=== PATIENT | male | born 1990 | race American Indian/Alaskan Native ===

== ENCOUNTER 2016-11-20 21:55 | Emergency (ER) | payer BC ==
[2016-11-20 22:38] VITALS: BP 133/87
[2016-11-20 23:00] LABS: Basophils % (Auto) 1.2 % (0.0-1.8); Hematocrit 43.9 % (35.5-45.6); Hemoglobin 14.3 gm/dl (11.8-15.2); Mean Corpuscular HGB Conc 33 % (32-34); Mean Corpuscular Hemoglobin 27 pg (28-32); Mean Corpuscular Volume 82 fl (84-94); Platelet Count 268 K/mm3 (140-440); Red Blood Count 5.36 M/mm3 (3.65-5.03); Red Cell Distribution Width 16.1 % (13.2-15.2); White Blood Count 6.5 K/mm3 (4.5-11.0)
[2016-11-20 23:25] LABS: Anion Gap 17 mmol/L; Blood Urea Nitrogen 12 mg/dL (9-20); Calcium 9.3 mg/dL (8.4-10.2); Carbon Dioxide 25 mmol/L (22-30); Glucose 87 mg/dL (75-100); Sodium 144 mmol/L (137-145)
--- NOTE | 2016-11-22 14:33 | ED Elopement Review ---
ED Pt Elopement review - Results review Lab results: Laboratory Tests 11/20/16 11/20/16 22:41 22:41 WBC 6.5 RBC 5.36 H Hgb 14.3 Hct 43.9 MCV 82 L MCH 27 L MCHC 33 RDW 16.1 H Plt Count 268 Lymph % (Auto) 20.6 Blaine % (Auto) 6.6 Eos % (Auto) 3.0 Baso % (Auto) 1.2 Lymph # 1.3 Blaine # 0.4 Eos # 0.2 Baso # 0.1 Seg Neutrophils % 68.6 Seg Neutrophils # 4.4 Sodium 144 Potassium 4.0 Chloride 106.0 Carbon Dioxide 25 Anion Gap 17 BUN 12 Creatinine 1.0 Estimated GFR > 60 BUN/Creatinine Ratio 12.00 Glucose 87 Calcium 9.3 C-Reactive Protein 0.00 - Call Back decision Pt Call Back Decision: Pt to F/U with PMD
== END 2016-11-21 02:51 | disposition left against medical advice (07) ==
LOC: ED 21:55
DX: R42 Dizziness and giddiness (principal); R11.0 Nausea; Z53.21 Procedure and treatment not carried out due to patient leaving prior to being seen by health care provider
CPT/HCPCS: 36415; 80048; 85025; 86140

== ENCOUNTER 2017-05-15 19:06 | Emergency (ER) | payer BC ==
[2017-05-15 20:17] VITALS: BP 124/82
[2017-05-16] MEDS ORDERED: MOTRIN PO ONE
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
== END 2017-05-16 01:05 | disposition home or self-care (01) ==
LOC: ED 19:06
DX: S13.4XXA Sprain of ligaments of cervical spine, initial encounter (principal); F17.200 Nicotine dependence, unspecified, uncomplicated; F12.10 Cannabis abuse, uncomplicated; V47.6XXA Car passenger injured in collision with fixed or stationary object in traffic accident, initial encounter; Y93.89 Activity, other specified; Y92.89 Other specified places as the place of occurrence of the external cause; Y99.8 Other external cause status
CPT/HCPCS: 99282

== ENCOUNTER 2019-07-12 01:09 | Emergency (ER) | payer BC ==
[2019-07-12 01:27] VITALS: BP 142/86
--- NOTE | 2019-07-12 02:42 | XRay Report ---
CHEST 1 VIEW INDICATION: Chest Pain. COMPARISON: none FINDINGS: SUPPORT DEVICES: None. HEART / MEDIASTINUM: No significant abnormality. LUNGS / PLEURA: No significant pulmonary or pleural abnormality. No pneumothorax. ADDITIONAL FINDINGS: IMPRESSION: 1. No acute cardiopulmonary disease Signer Name: Dinesh Le MD Signed: 07/12/2019 2:38 AM Workstation Name: [email or web address]
--- NOTE | 2019-07-12 08:02 | Emergency Department Report ---
ED General Adult HPI - General Chief complaint: Chest Pain Stated complaint: CHEST PAIN, SORE THROAT Time Seen by Provider: 07/12/19 07:13 Source: patient Mode of arrival: Ambulatory Limitations: No Limitations - History of Present Illness Initial comments: This is a 29-year-old -[place] male who presents to the emergency room with substernal chest discomfort for 2 days. Past medical history of migraines. Patient also reports sore throat and congestion associated symptoms. Patient states his son was diagnosed with strep throat last week and he think he possibly caught it from him. He is currently not taking anything for symptomatic relief. He denies cough, chills, nausea, vomiting, headache, myalgia, or weakness. Onset/Timin -: days(s) Location: chest Radiation: non-radiation Severity scale (0 -10): 6 Quality: aching Consistency: intermittent Improves with: none Worsens with: none Associated Symptoms: chest pain. denies: cough, diaphoresis, fever/chills, headaches, loss of appetite, malaise, nausea/vomiting, rash, seizure, shortness of breath, syncope, weakness Treatments Prior to Arrival: none - Related Data Previous Rx's Medication Instructions Recorded Last Taken Type Ondansetron [Zofran Odt] 4 mg PO Q6H #10 tab.rapdis 04/29/14 Unknown Rx traMADoL [Ultram 50 MG tab] 50 mg PO Q6HR PRN #14 tablet 04/29/14 Unknown Rx Famotidine [Pepcid] 20 mg PO BID #20 tablet 06/16/15 Unknown Rx Ondansetron [Zofran Odt] 4 mg PO Q8H PRN #10 tab.rapdis 01/02/16 Unknown Rx Cyclobenzaprine [Flexeril] 10 mg PO QHS PRN #7 tablet 05/16/17 Unknown Rx Ibuprofen [Motrin] 600 mg PO Q8H PRN #30 tablet 05/16/17 Unknown Rx Nystas/Diphen/Xyl Visc/Mylanta 15 ml MM Q4H PRN #100 ml 07/12/19 Unknown Rx [Magic Mouthwash] Penicillin V Potassium 500 mg PO BID #20 tablet 07/12/19 Unknown Rx Allergies Allergy/AdvReac Type Severity Reaction Status Date / Time No Known Allergies Allergy Verified 04/29/14 02:04 ED Review of Systems ROS: Stated complaint: CHEST PAIN, SORE THROAT Other details as noted in HPI Constitutional: denies: chills, fever ENT: throat pain, congestion. denies: ear pain, dental pain, hearing loss, epistaxis Respiratory: denies: cough, shortness of breath, wheezing Cardiovascular: chest pain. denies: palpitations Gastrointestinal: denies: abdominal pain, nausea, diarrhea Musculoskeletal: denies: back pain, joint swelling, arthralgia Skin: denies: rash, lesions Neurological: denies: headache, weakness, paresthesias Psychiatric: denies: anxiety, depression ED Past Medical Hx - Past Medical History Previous Medical History?: Yes Hx Headaches / Migraines: Yes Additional medical history: Migraines - Surgical History Past Surgical History?: No - Social History Smoking Status: Current Every Day Smoker Substance Use Type: Marijuana - Medications Home Medications: Home Medications Medication Instructions Recorded Confirmed Last Taken Type Ondansetron [Zofran Odt] 4 mg PO Q6H #10 tab.rapdis 04/29/14 Unknown Rx traMADoL [Ultram 50 MG tab] 50 mg PO Q6HR PRN #14 tablet 04/29/14 Unknown Rx Famotidine [Pepcid] 20 mg PO BID #20 tablet 06/16/15 Unknown Rx Ondansetron [Zofran Odt] 4 mg PO Q8H PRN #10 tab.rapdis 01/02/16 Unknown Rx Cyclobenzaprine [Flexeril] 10 mg PO QHS PRN #7 tablet 05/16/17 Unknown Rx Ibuprofen [Motrin] 600 mg PO Q8H PRN #30 tablet 05/16/17 Unknown Rx Nystas/Diphen/Xyl Visc/Mylanta 15 ml MM Q4H PRN #100 ml 07/12/19 Unknown Rx [Magic Mouthwash] Penicillin V Potassium 500 mg PO BID #20 tablet 07/12/19 Unknown Rx ED Physical Exam - General Limitations: No Limitations General appearance: alert, in no apparent distress - ENT ENT exam: Present: mucous membranes moist, TM's normal bilaterally, normal external ear exam. Absent: normal orophraynx (Erythematous and enlarged tonsils without exudate, uvula midline) - Neck Neck exam: Present: normal inspection - Respiratory Respiratory exam: Present: normal lung sounds bilaterally. Absent: respiratory distress, wheezes, rales, rhonchi, stridor, chest wall tenderness - Cardiovascular Cardiovascular Exam: Present: regular rate, normal rhythm. Absent: systolic murmur, diastolic murmur, rubs, gallop - GI/Abdominal GI/Abdominal exam: Present: soft, normal bowel sounds. Absent: distended, tenderness, guarding, rebound, rigid - Extremities Exam Extremities exam: Present: normal inspection - Neurological Exam Neurological exam: Present: alert, oriented X3, normal gait - Psychiatric Psychiatric exam: Present: normal affect, normal mood - Skin Skin exam: Present: warm, dry, intact, normal color. Absent: rash ED Course Vital Signs 07/12/19 01:26 Temperature 97.9 F Pulse Rate 54 L Respiratory 18 Rate Blood Pressure 142/86 O2 Sat by Pulse 100 Oximetry ED Medical Decision Making - Radiology Data Radiology results: report reviewed CHEST 1 VIEW INDICATION: Chest Pain. COMPARISON: none FINDINGS: SUPPORT DEVICES: None. HEART / MEDIASTINUM: No significant abnormality. LUNGS / PLEURA: No significant pulmonary or pleural abnormality. No pneumothorax. ADDITIONAL FINDINGS: IMPRESSION: 1. No acute cardiopulmonary disease - Medical Decision Making This is a 29 y.o. male that presents with sore throat, congestion, and chest pain for 2 days. Vitals are stable and patient in no acute distress. A chest x-ray was obtained with no acute cardiopulmonary findings. Center positive for strep throat. Start penicillin and Magic mouthwash. Take Tylenol or ibuprofen for pain. Discussed plan with patient and he agreed with plan to treat outpatient. Discharged home stable with strict return instructions. Return to work tomorrow. Follow up with PCP in 48-72 hours. Critical care attestation.: If time is entered above; I have spent that time in minutes in the direct care of this critically ill patient, excluding procedure time. ED Disposition Clinical Impression: Acute sore throat Chest pain Qualifiers: Chest pain type: other chest pain Qualified Code(s): R07.89 - Other chest pain; R07.8 - Other chest pain Acute pharyngitis Qualifiers: Pharyngitis/tonsillitis etiology: unspecified etiology Qualified Code(s): J02.9 - Acute pharyngitis, unspecified Disposition: TO HOME OR SELFCARE Is pt being admited?: No Condition: Stable Instructions: Chest Pain (ED), Pharyngitis (ED) Additional Instructions: Expect symptoms to improve within 3 or 4 days. There is no need for bed rest or isolation. Use Tylenol or Ibuprofen for symptoms of sore throat, headache, and fever. Return to work in 24 hours of taking antibiotics. Follow up with Primary Care Provider in 48-72 hours. Prescriptions: Nystas/Diphen/Xyl Visc/Mylanta [Magic Mouthwash] 15 ml MM Q4H PRN #100 ml PRN Reason: Sore Throat Penicillin V Potassium 500 mg PO BID #20 tablet Referrals: TERRANCE CARRASQUILLO DO [Staff Physician] - 3-5 Days [facility] [Provider Group] - 3-5 Days [facility] [Provider Group] - 3-5 Days LYDIA BURROWS MD [Staff Physician] - 3-5 Days Forms: Work/School Release Form(ED) Time of Disposition: 08:04
== END 2019-07-12 08:12 | disposition home or self-care (01) ==
LOC: ED 01:09
DX: J02.9 Acute pharyngitis, unspecified (principal); R07.89 Other chest pain; G43.909 Migraine, unspecified, not intractable, without status migrainosus; F17.200 Nicotine dependence, unspecified, uncomplicated; Z79.899 Other long term (current) drug therapy
CPT/HCPCS: 71045; 93005; 93010; 99283